=== PATIENT | female | born 1950 ===

== ENCOUNTER 2021-09-05 08:45 | Outpatient (CLI) | payer MEDICARE | END 2021-09-05 08:46 | disposition home or self-care (01) | LOC: LABHHL 08:45 | PROVIDERS: ATTEND Otolaryngology Otology & Neurotology | DX: J34.2 Deviated nasal septum (principal); J34.3 Hypertrophy of nasal turbinates; J34.89 Other specified disorders of nose and nasal sinuses | CPT/HCPCS: 87075; 87076; 87102; 87116; 87186; 87220; 88305; 88311 ==